=== PATIENT | male | born 1970 | race Caucasian/White ===

== ENCOUNTER 2022-11-02 22:20 | Inpatient (IN) | payer MEDICAID ==
[~2022-11-02] VITALS: Ht 172.7 cm; Wt 99.8 kg
[2022-11-02 22:22] VITALS: BP 130/78
--- NOTE | 2022-11-02 23:59 | NUR ---
Blood for labwork drawn by courier. Patient tolerated well.
[2022-11-03 00:10] LABS: BASOPHILS % (AUTO) 0.3 % (0.0-2.0); LYMPHOCYTES % (AUTO) 10.3 % (20.5-51.1); MEAN CORPUSCULAR HEMOGLOBIN 31 pg (27-31); MEAN CORPUSCULAR HGB CONC 33 g/dL (33-37); MEAN CORPUSCULAR VOLUME 91.7 fL (80-94); MONOCYTES # (AUTO) 0.6 K/uL (0.8-1.0); MONOCYTES % (AUTO) 6.3 % (1.7-9.3); NEUTROPHILS # (AUTO) 8.4 K/uL (1.8-7.7); NEUTROPHILS % (AUTO) 83.1 % (42.2-75.2); PLATELET COUNT (AUTO) 96 K/uL (140-450); RED BLOOD CELL COUNT(AUTO) 4.91 MIL/uL (4.20-6.10); RED CELL DISTRIBUTION WIDTH 17.2 % (11.6-13.7); WHITE BLOOD COUNT (AUTO) 10.1 K/uL (4.8-10.8)
[2022-11-03 00:18] LABS: ANION GAP 18.8 (8-16); CARBON DIOXIDE 25.9 mmol/L (21-32); CREATININE 1.3 mg/dL (0.6-1.3); POTASSIUM 3.7 mmol/L (3.5-5.1)
[2022-11-03 00:24] LABS: ALBUMIN 2.5 g/dL (3.4-5.0); TOTAL BILIRUBIN 3.5 mg/dL (0.0-1.0)
[2022-11-03] MEDS ORDERED: IBUPROFEN 600 MG TAB PO ONE (01:10)
[2022-11-03] MEDS ORDERED: IBUPROFEN 600 MG TAB ONE (01:14)
--- NOTE | 2022-11-03 01:18 | NUR ---
PT TO CT
--- NOTE | 2022-11-03 01:36 | NUR ---
PT RETURNED FROM CT
--- NOTE | 2022-11-03 02:02 | NUR ---
PT TAKEN TO ER BED 6
[2022-11-03] MEDS ORDERED: KETOROLAC 15 MG/ML VIAL IVP ONE (02:20)
--- NOTE | 2022-11-03 02:40 | NUR ---
COVID-19 swab collected and sent to lab.
--- NOTE | 2022-11-03 03:02 | NUR ---
Dr. Mayer examining patient.
[2022-11-03] MEDS ORDERED: LORazepam 2 MG/ML VIAL IVP PRN (03:55)
--- NOTE | 2022-11-03 04:14 | NUR ---
Patient states " I feel anxious, I can not sleep, can you help me,", Given medication as protocol
--- NOTE | 2022-11-03 05:20 | NUR ---
Pt asleep in comfort on ED gurney with rails up and no s/s of acute distress, awaiting bed assignment
--- NOTE | 2022-11-03 07:19 | NUR ---
REPORT RECEIVED FROM PHILLIP ZAVALA. ASSUMED CARE AT THIS TIME
--- NOTE | 2022-11-03 07:49 | NUR ---
pt tachy w/ new onset of body aches and shakes. MD DING MADE AWARE. NO ADMIT ORDERS
[2022-11-03] MEDS ORDERED: ONDANSETRON 4 MG/2 ML VIAL IVP PRN (07:50)
[2022-11-03] MEDS ORDERED: DOCUSATE SODIUM 100 MG GELCAP PO PRN (07:50)
[2022-11-03] MEDS ORDERED: POTASSIUM CHLORIDE 10 MEQ TABER PO PRN (07:50)
[2022-11-03] MEDS ORDERED: MAG SULF 2000 MG/WATER PREMIX 50 ML IV PRN (07:50)
[2022-11-03] MEDS ORDERED: ZOLPIDEM 10 MG TAB PO PRN (07:50)
[2022-11-03] MEDS ORDERED: ACETAMINOPHEN 325 MG TAB PO PRN (07:50)
--- NOTE | 2022-11-03 07:52 | NUR ---
Patient will be admitted to care of MD DING. Admited to TELE. Will go to room 128A. Belongings list completed. Report to MARTÍNEZ ZAVALA .
--- NOTE | 2022-11-03 07:53 | NUR ---
The patient's care was reviewed and supervised by Carlie Arana, RN, RN.
[2022-11-03 08:05] VITALS: BP 126/71
[2022-11-03] MEDS: MORPHINE SULFATE 2 MG/ML SYR IVP PRN ×3 (10:04→20:34)
[2022-11-03] MEDS: LORazepam 2 MG/ML VIAL IVP PRN ×3 (10:05→19:40)
--- NOTE | 2022-11-03 10:43 | NUR ---
PATIENT HAS BEEN SCREENED AND CATEGORIZED MODERATE NUTRITION RISK. PATIENT WILL BE SEEN WITHIN 3-5 DAYS OF ADMISSION. REVIEWED BY ANTONY BARRERA RD
[2022-11-03 12:00] VITALS: BP 123/65
[2022-11-03] MEDS: chlordiazePOXIDE 25 MG CAP PO SCH ×2 (12:35→16:03)
[2022-11-03 16:07] VITALS: BP 123/65
--- NOTE | 2022-11-03 19:30 | NUR ---
RECEIVED REPORT FROM DAY RN FOR CONTINUITY OF CARE. PT A&O X 4, BREATHING EVEN AND UNLABORED. NO S/SX OF DISTRESS NOTED. IV ON R AC G20, SL. COMPLAINING OF ABDOMINAL PAIN. PRN PAIN MEDICATION NOT YET DUE AT THIS TIME. NOTED BUTTOCK WOUNDS. ALL PRECAUTIONS IN PLACE. CALL LIGHT WITHIN REACH. WILL CONTINUE TO MONITOR.
[2022-11-03 20:00] VITALS: BP 141/90
--- NOTE | 2022-11-03 20:36 | NUR ---
PRN PAIN MEDICATION GIVEN. PT TOLERATED WELL.WILL CONTINUE TO MONITOR.
--- NOTE | 2022-11-03 23:53 | NUR ---
PT ASLEEP. NO S/SX OF DISTRESS NOTED. BREATHING EVEN AND UNLABORED. ALL PRECAUTIONS IN PLACE. WILL CONTINUE TO MONITOR.
[2022-11-04] VITALS: BP 135/88
[2022-11-04 04:00] VITALS: BP 129/82
[2022-11-04 06:02] LABS: BASOPHILS % (AUTO) 0.7 % (0.0-2.0); EOSINOPHILS # (AUTO) 0.1 K/uL (0-0.4); EOSINOPHILS % (AUTO) 2.2 % (0.0-4.0); HEMOGLOBIN 12.2 g/dL (12.0-18.0); LYMPHOCYTES # (AUTO) 1.5 K/uL (2.0-11.5); LYMPHOCYTES % (AUTO) 22.9 % (20.5-51.1); MEAN CORPUSCULAR HEMOGLOBIN 31 pg (27-31); MEAN CORPUSCULAR HGB CONC 33 g/dL (33-37); MEAN CORPUSCULAR VOLUME 93.5 fL (80-94); MONOCYTES # (AUTO) 0.7 K/uL (0.8-1.0); MONOCYTES % (AUTO) 11.3 % (1.7-9.3); NEUTROPHILS % (AUTO) 62.9 % (42.2-75.2); PLATELET COUNT (AUTO) 83 K/uL (140-450); RED BLOOD CELL COUNT(AUTO) 3.96 MIL/uL (4.20-6.10); RED CELL DISTRIBUTION WIDTH 15.8 % (11.6-13.7); WHITE BLOOD COUNT (AUTO) 6.4 K/uL (4.8-10.8)
[2022-11-04 06:17] LABS: ANION GAP 10.1 (8-16); CARBON DIOXIDE 31.2 mmol/L (21-32); CREATININE 0.8 mg/dL (0.6-1.3); POTASSIUM 3.3 mmol/L (3.5-5.1)
[2022-11-04] MEDS: MORPHINE SULFATE 2 MG/ML SYR IVP PRN ×4 (06:46→19:45)
[2022-11-04] MEDS: LORazepam 2 MG/ML VIAL IVP PRN ×3 (08:55→23:15)
[2022-11-04] MEDS: chlordiazePOXIDE 25 MG CAP PO SCH ×3 (08:55→18:41)
[2022-11-04] MEDS: FOLIC ACID 1 MG TAB PO SCH (08:57)
[2022-11-04] MEDS: THIAMINE 100 MG TAB PO SCH (08:58)
[2022-11-04 09:01] VITALS: BP 139/87
[2022-11-04 13:26] VITALS: BP 135/79
--- NOTE | 2022-11-04 15:24 | NUR ---
IPHONE CHARGE FOR PATIENT TO CONTACT HIS SON. PATIENT SAYS HIS RIDE CANNOT PICK HIM UP TODAY, SAYS HE CAN GET A RIDE TOMORROW.
--- NOTE | 2022-11-04 15:40 | NUR ---
PHYSICAL THERAPY CO-SIGN The Physical Therapy Progress Notes documented by Fluid Designer have been reviewed. Reviewed/Co-Signed by: Lashell Reed Documentation Done by: BRIAN PORTILLO PTA Addendum: 11/04/22 at 1541 by Lashell Reed PT Amended: Links added.
[2022-11-04 16:00] VITALS: BP 125/78
--- NOTE | 2022-11-04 19:20 | NUR ---
RECEIVED REPORT FROM DAY SHIFT NURSE FOR CONTINUITY OF CARE. PATIENT IS STABLE IN BED. ALERT AND ORIENTED X4. CURRENTLY COMPLAINING OF SEVERE PAIN. APPEARS TO BE RESTLESS. PATIENT IS ON ROOM AIR WITH NO CURRENT S/S OF DISTRESS. RESPIRATIONS EVEN AND UNLABORED. PATIENT IS ABLE TO AMBULATE WITH NO ASSISTANCE. PATIENT HAS AN IV SITE LOCATED AT THE RIGHT AC, GAUGE 20. ALL SAFETY MEASURES IN PLACE, BED LOWERED TO LOWEST POINT, CALL LIGHT WITHIN REACH. WILL CONTINUE TO MONITOR.
[2022-11-04 20:00] VITALS: BP 156/92
[2022-11-05] VITALS: BP 153/89
--- NOTE | 2022-11-05 00:49 | NUR ---
MORPHINE WAS ADMINISTERED PRN FOR SEVERE PAIN AT 1945. NO SIGNS OF DISTRESS NOTED, WILL CONTINUE TO MONITOR.
--- NOTE | 2022-11-05 04:02 | NUR ---
PATIENT ASLEEP LYING SUPINE. NOTICEABLE CHEST RISE AND FALL, BREATHING IS EVEN AND UNLABORED, NO SIGNS OF DISTRESS NOTED. WILL CONTINUE TO MONITOR.
[2022-11-05 05:30] LABS: BASOPHILS # (AUTO) 0.1 K/uL (0.00-0.22); BASOPHILS % (AUTO) 0.7 % (0.0-2.0); EOSINOPHILS # (AUTO) 0.2 K/uL (0-0.4); HEMATOCRIT 37.9 % (36-52); HEMOGLOBIN 12.6 g/dL (12.0-18.0); LYMPHOCYTES # (AUTO) 1.7 K/uL (2.0-11.5); LYMPHOCYTES % (AUTO) 22.6 % (20.5-51.1); MEAN CORPUSCULAR HEMOGLOBIN 31 pg (27-31); MEAN CORPUSCULAR HGB CONC 33 g/dL (33-37); MEAN CORPUSCULAR VOLUME 93.4 fL (80-94); MONOCYTES # (AUTO) 0.9 K/uL (0.8-1.0); MONOCYTES % (AUTO) 11.4 % (1.7-9.3); NEUTROPHILS # (AUTO) 4.7 K/uL (1.8-7.7); NEUTROPHILS % (AUTO) 62.3 % (42.2-75.2); PLATELET COUNT (AUTO) 140 K/uL (140-450); RED BLOOD CELL COUNT(AUTO) 4.06 MIL/uL (4.20-6.10); RED CELL DISTRIBUTION WIDTH 15.9 % (11.6-13.7); WHITE BLOOD COUNT (AUTO) 7.6 K/uL (4.8-10.8)
[2022-11-05 06:00] LABS: ANION GAP 11.4 (8-16); CARBON DIOXIDE 31.3 mmol/L (21-32); CREATININE 0.8 mg/dL (0.6-1.3); POTASSIUM 3.7 mmol/L (3.5-5.1)
[2022-11-05] MEDS: FOLIC ACID 1 MG TAB PO SCH (08:48)
[2022-11-05] MEDS: THIAMINE 100 MG TAB PO SCH (08:48)
[2022-11-05] MEDS ORDERED: THIA-34 PO (09:17)
[2022-11-05] MEDS ORDERED: FOLI1TAB90 PO (09:17)
[2022-11-05] MEDS ORDERED: CHLO5CAP29 PO (09:17)
[2022-11-05 09:24] VITALS: BP 142/89
--- NOTE | 2022-11-05 11:16 | NUR ---
patient discharged home accompanied by son. personal belongings sent with patient. stable upon discharge.
== END 2022-11-05 11:05 | disposition home or self-care (01) ==
LOC: MED 22:20 → MMU 11-03 03:57
PROVIDERS: ADMIT Family Medicine; ATTEND Family Medicine
DX: K74.60 Unspecified cirrhosis of liver (principal); E43 Unspecified severe protein-calorie malnutrition; E83.51 Hypocalcemia; E87.8 Other disorders of electrolyte and fluid balance, not elsewhere classified; E87.1 Hypo-osmolality and hyponatremia; E83.42 Hypomagnesemia; E87.6 Hypokalemia; Z20.822 Contact with and (suspected) exposure to COVID-19; Z59.00 Homelessness unspecified; Z68.33 Body mass index [BMI] 33.0-33.9, adult
CPT/HCPCS: 36415; 80048; 80053; 83735; 85025; 87081; 93005; 96374; 96375; 97116; 97163-GP; 97530; 99285; J1885; J2060; J2270; J3475